=== PATIENT | male | born 1980 | race Caucasian/White ===

== ENCOUNTER 2018-06-24 18:46 | Emergency (ER) | payer MEDICAID, SELFPAY ==
[2018-06-24 18:49] VITALS: BP 124/86; PULSE 78; RESP 18; TEMP 37; O2SAT 98
[2018-06-24] MEDS: Tetracaine 0.5% 4 ML BTL 1 ML OP (19:01)
--- NOTE | 2018-06-24 19:31 | ED.GENADUL_ITS ---
Disposition Clinical Impression: Foreign body of right eye Disposition: HOME Instructions: Eye Foreign Body (ED) Additional Instructions: Please use antibiotic ointment: apply 1inch to right eye 4 times a day for the next 1 week. Please follow-up with an audio visual production specialist tomorrow. Please follow-up with your primary care physician. Return to the emergency department immediately for any worsening or new concerning symptoms. Referrals: Vi Gamble [Primary Care Provider] - [facility] [Outside] Medical Decision Making - Medical Decision Making 37-year-old male here with small metallic foreign body embedded in right cornea. I anesthetized with tetracaine drops. Foreign body easily removed with 30- gauge beveled needle - no complications. Small persistent corneal stain vs rust ring vs tiny fb. Will start erythromycin ointment. Patient advised to followup tomorrow with [facility]. Patient understands importance of follow-up tomorrow. I encouraged him to return to the ER should have any worsening or new concerning symptoms. Will give tetanus vaccination. History of Present Illness - General Chief complaint: EyeProblem Stated complaint: FB IN EYE Time Seen by Provider: 06/24/18 19:29 Source: patient, RN notes reviewed Mode of arrival: ambulatory Limitations: no limitations - History of Present Illness Initial comments: 37yo m with chief complaint of foreign body in right eye. 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 This occurred around 4 PM today. He was wearing eye protection. Foreign body has been irritating. Discomfort is moderate. He did flush his eye without relief. He has associated tearing. No associated visual change. - Related Data Unknown [No Known Home Meds] 06/24/18 Allergies Allergy/AdvReac Type Severity Reaction Status Date / Time No Known Allergies Allergy Unverified 06/24/18 18:56 Review of Systems Eyes: eye pain. denies: vision change Past Medical History - Past Medical History Medical history: no medical history Surgical history: other (disk surgery) - Social History Smoking status: current everyday smoker Alcohol use: occasionally Drug use: none General Exam - General Limitations: no limitations General appearance: alert, in no apparent distress - Eye Eye exam: Present: PERRL, EOMI, other (right eye with conjunctival injection, tiny metalic fb embedded in cornea at 11pm ). Absent: conjunctival injection - Neurological Exam Neurological exam: Present: alert. Absent: altered - Skin Skin exam: Present: warm, dry, intact Course Vital Signs - 24 hr 06/24/18 18:49 Temperature 37 C Pulse 78 Respiratory 18 Rate Blood Pressure 124/86 Pulse Oximetry 98
[2018-06-24] MEDS: Erythromycin Ophth Oint 3.5 GM TUBE 1 GM OD (19:37)
== END 2018-06-24 19:53 | disposition home or self-care (01) ==
PROVIDERS: Emergency Provider Student in an Organized Health Care Education/Training Program; PCP Nurse Practitioner Family
DX: T15.91XA Foreign body on external eye, part unspecified, right eye, initial encounter (principal)
CPT/HCPCS: 65220; 90471

== ENCOUNTER 2018-10-05 15:46 | Emergency (ER) | payer MEDICAID, SELFPAY ==
[2018-10-05 15:55] VITALS: RESP 18
[2018-10-05 15:58] VITALS: BP 121/79; PULSE 85; RESP 16; TEMP 36.6; O2SAT 99
--- NOTE | 2018-10-05 16:02 | W.ED.GENAD ---
Discharge Plan Disposition Patient Disposition: HOME Condition: Good Discharge Details Chief Complaint: SOB Clinical Impression: Wheezing, Bronchitis Primary Care Provider: Vi Gamble ED Provider: Sameer Singh Home Meds and New Rx's Prescriptions: New prednisone 20 mg tablet 60 mg PO DAILY 4 Days Qty: 12 RF: 0 doxycycline hyclate 100 mg tablet 100 mg PO BID Qty: 14 RF: 0 No Action No Known Home Meds RF: 0 Discharge Instructions Additional Instructions: You need to follow up with your primary care provider within a week. You should have testing done to evaluate for copd If you have worsening shortness of breath despite using your inhaler, or severe pain return to the emergency department for reevaluation Medical Decision Making 37 yo male with no chronic medical problems, smoker for about 20 years 1ppd on average per pt, comes in with worsening shrotness of breath and productive cough for a month. Denies chest pain, leg swelling or calf pain. HE is speaking in full sentences but has wheezing diffusely on exam. No leg swelling or calf tenderness and has no tachycardia or hypoxia so doubt PE. I suspect he has undiagnosed copd given his smoking history, will treat with abx given increased productive cough, nebulizer and steroids and monitor pt feels much better after stesroids and breathing treatment, has mild wheezing at the bases bilaterally. Will treat as copd exacerbation and referred to pcp within a week and should have testing done for copd. Return precautions given Differential Diagnosis copd, uri, pneumonia, asthma HPI General Mode of arrival: ambulatory. Date/Time Provider Initiated Documentation: 10/05/18 15:49. Limitations to Documentation: no limitations. Information obtained by: patient. History of Present Illness 37 year old M presents to the emergency department with the chief complaint of cough and shortness of breath, described as moderate, Patient reports no radiation. Patient started experiencing this month(s) (1) and it has been constant. No relieving factors improve symptom(s), No exacerbating factors reported . Patient did receive the following treatments prior to arrival, none Related Data Home Medications Medication Instructions Recorded Confirmed Unknown [No Known Home Meds] 06/24/18 10/05/18 doxycycline hyclate 100 mg PO BID #14 tab 10/05/18 prednisone 60 mg PO DAILY 4 Days #12 tab 10/05/18 Previous Rx's Medication Instructions Recorded doxycycline hyclate 100 mg PO BID #14 tab 10/05/18 prednisone 60 mg PO DAILY 4 Days #12 tab 10/05/18 Allergies Allergy/AdvReac Type Severity Reaction Status Date / Time No Known Allergies Allergy Unverified 10/05/18 16:03 General Stated Complaint: SOB ZEE: 3 Review of Systems Review of Systems All systems reviewed & are unremarkable except as noted in HPI and below Constitutional Denies fever(s) and Denies weakness Eyes Denies loss of vision ENT Denies change in voice Cardiovascular Denies chest pain Gastrointestinal Denies abdominal pain, Denies nausea and Denies vomiting Genitourinary Denies dysuria Musculoskeletal Denies joint swelling Integumentary/Breasts Denies rash Neurologic Denies loss of vision and Denies weakness Psychiatric Denies depression Endocrine Denies cold intolerance and Denies heat intolerance [facility] Social History Smoking/Tobacco Use Status: Current every day Exam Const General: no acute distress Orientation: alert HENMT Head: normal to inspection Ears: external ears normal General nose exam: external nose normal Mouth: moist mucous membranes Eyes General: appearance normal, both eyes and all related structures Neck Neck: normal visual inspection Resp Effort & Inspection: normal respiratory effort, able to speak in complete sentences and audible wheezes Cardio Rate: regular rate Skin General skin exam: no rashes or lesions noted Neuro General: alert and oriented x3 Extrem General: normal to inspection Psych Mental Status: mental status grossly normal Course Vital Signs Temperature 36.6 C 10/05/18 15:58 Pulse 85 10/05/18 15:58 Respiratory Rate 16 10/05/18 15:58 Blood Pressure 121/79 10/05/18 15:58 Pulse Oximetry 99 10/05/18 15:58 Temperature 36.6 C 10/05/18 15:58 Temperature Source Temporal Artery Scan 10/05/18 15:58 Pulse 85 10/05/18 15:58 Respiratory Rate 16 10/05/18 15:58 Blood Pressure 121/79 10/05/18 15:58 Blood Pressure Position Sitting 10/05/18 15:58 Pulse Oximetry 99 10/05/18 15:58 Oxygen Delivery Method Room Air 10/05/18 15:58 Oxygen Flow Rate 0 10/05/18 15:58 Pain Level 0 10/05/18 15:58
[2018-10-05] MEDS: predniSONE 20 MG TAB 60 MG PO ×2 (16:12→16:13)
[2018-10-05] MEDS: Albuterol/Ipratropium 3 ML UPD VIAL UPD (16:13)
[2018-10-05] MEDS: Doxycycline Hyclate 100 MG CAP PO (16:13)
[2018-10-05] MEDS: Inhaler, Assist Device 1 EACH MC (16:54)
[2018-10-05] MEDS: Albuterol HFA 8 GM 60 PUFF INH IH (17:01)
== END 2018-10-05 16:54 | disposition home or self-care (01) ==
PROVIDERS: Emergency Provider Emergency Medicine; PCP Nurse Practitioner Family
DX: J20.9 Acute bronchitis, unspecified (principal); F17.210 Nicotine dependence, cigarettes, uncomplicated
CPT/HCPCS: 94640; 99283; J7512; J7620

== ENCOUNTER 2019-02-14 17:47 | Emergency (ER) | payer MEDICAID, SELFPAY ==
--- NOTE | 2019-02-14 18:02 | NUR.NOTE ---
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
[2019-02-14 18:03] VITALS: BP 127/85; PULSE 95; RESP 16; TEMP 37; O2SAT 96
--- NOTE | 2019-02-14 18:16 | W.ED.GENAD ---
Discharge Plan Disposition Patient Disposition: HOME Condition: Good Discharge Details Chief Complaint: EyeProblem Clinical Impression: Eye foreign body Primary Care Provider: Vi Gamble ED Provider: Reymundo Morris Home Meds and New Rx's Prescriptions: No Action No Known Home Meds RF: 0 doxycycline hyclate 100 mg tablet 100 mg PO BID Qty: 14 RF: 0 Discharge Instructions Instructions: Eye Foreign Body (ED) Additional Instructions: Please follow-up as soon as possible with your nursing home director. Please use the ointment as directed. If you notice any worsening of your symptoms, or any new symptoms such as vomiting, diarrhea, fever, chills, shortness of breath, chest pain, numbness, weakness, or fainting , vision changes, or other abnormality please return immediately to the emergency department for reevaluation. Please follow up with your primary care provider as soon as possible for reassessment and reevaluation. As always, it was a pleasure participating in your medical care today. Referrals: [facility] [OTHER] - Medical Decision Making This is is a 38-year-old male who presents for evaluation of foreign body in the right eye. It occurred roughly 1-2 hours ago when he was working on a car wearing safety glasses. He does not wear contacts. Physical exam demonstrates a very small rust spec in the right lateral aspect of the eye just to the border of the cornea at the 9 o'clock position. Fluorescein stain demonstrates no other significant abrasions, no evidence of leak, negative Betty sign. No other abnormalities. Pain is well controlled. Vision is intact bilaterally. Using a TB needle the metallic object was removed without any complication or difficulty. Patient tolerated well. Tetanus is up-to-date. He will be given a prescription for erythromycin ointment, recommendation for close follow-up with his nursing home director Dr. Garza. We discussed red flags which to return the patient understands. I have extensively reviewed the treatment plan and discharge instructions with the patient. I have addressed all patient concerns at this time. The patient was made aware of what symptoms to monitor for that would warrant a return to the emergency department. Discussed the plan with the patient, they demonstrate verbal understanding and agreement with our assessment and plan at this time. HPI General Date/Time Provider Initiated Documentation: 02/14/19 18:15. HPI Narrative: This is a 38-year-old male with no significant past medical history who presents today for evaluation of a foreign body in his right eye. He is wearing his safety goggles something fell and landed behind his glasses into his right eye while working on a car. His tetanus is up-to-date. This is about an hour or so ago. He denies any significant eye pain, or other vision changes. He denies any blurry vision he denies any headache. Tetanus is updated within the last 5 years. No other complaints at this time. No other modifying factors Related Data Home Medications Medication Instructions Recorded Confirmed Unknown [No Known Home Meds] 06/24/18 10/05/18 doxycycline hyclate 100 mg PO BID #14 tab 10/05/18 Previous Rx's Medication Instructions Recorded doxycycline hyclate 100 mg PO BID #14 tab 10/05/18 Allergies Allergy/AdvReac Type Severity Reaction Status Date / Time No Known Allergies Allergy Unverified 10/05/18 16:03 General Stated Complaint: EyeProblem ZEE: 4 Review of Systems Review of Systems All systems reviewed & are unremarkable except as noted in HPI and below PFSH Social History Smoking/Tobacco Use Status: Current every day Drug use: Never Do you feel safe in your relationship?: Yes Exam Narrative Exam Narrative: 1.Const: Well-nourished, Well-developed, appearing stated age 2.Eyes: PERRL, no conjunctival injection, and symmetrical lids. Right eye: Eye: EOMI, PERRL, Peripheral vision intact. No nystagmus. No external signs of preseptal cellulitis, no redness around the eye, no proptosis. No hyphema, no signs of trauma around the eye, no periorbital emphysema. Fluorescein exam is negative for corneal abrasion, negative Betty sign. Visual acuity as documented in chart. He does demonstrate a small metallic danna component just to the right of his cornea the lateral aspect. No evidence of rust ring. No evidence of metallic foreign body or other foreign body noted beneath the upper or lower lid. 3.ENT: Atraumatic external nose and ears. Moist MM. Neck: Symmetric, trachea midline, No thyromegaly. 4.CVS: +S1/S2, No murmurs or gallops. Peripheral pulses 2+ and equal in all extremities. Brisk capillary refill in all extremities. 5.RESP: Unlabored respiratory effort. Clear to auscultation bilaterally. No wheezes rales or rhonchi 6.GI: Soft, Nontender/Nondistended, No hepatosplenomegaly. No guarding or rebound. 7.MSK: Normocephalic/Atraumatic, Extremities w/o deformity or ttp No cyanosis or clubbing, Normal movement of all extremities 8.Skin: Warm, Dry. No rashes or lesions. 9.Neuro: hospital superintendent II-XII grossly intact. Sensation grossly intact, no focal neurologic deficits. 10.Psych: (AAO) x3. Appropriate mood and affect Course Vital Signs Temperature 37 C 02/14/19 18:03 Pulse 95 H 02/14/19 18:03 Respiratory Rate 16 02/14/19 18:03 Blood Pressure 127/85 02/14/19 18:03 Pulse Oximetry 96 02/14/19 18:03 Temperature 37 C 02/14/19 18:03 Temperature Source Skin 02/14/19 18:03 Pulse 95 H 02/14/19 18:03 Respiratory Rate 16 02/14/19 18:03 Blood Pressure 127/85 02/14/19 18:03 Blood Pressure Position Sitting 02/14/19 18:03 Pulse Oximetry 96 02/14/19 18:03 Oxygen Delivery Method Room Air 02/14/19 18:03 Oxygen Flow Rate 0 02/14/19 18:03 Pain Level 0 02/14/19 18:03
--- NOTE | 2019-02-14 18:21 | ED.GENADUL_ITS ---
Discharge Plan Disposition Patient Disposition: HOME Condition: Good Discharge Details Chief Complaint: EyeProblem Clinical Impression: Eye foreign body Primary Care Provider: Vi Gamble ED Provider: Reymundo Morris Home Meds and New Rx's Prescriptions: No Action No Known Home Meds RF: 0 doxycycline hyclate 100 mg tablet 100 mg PO BID Qty: 14 RF: 0 Discharge Instructions Instructions: Eye Foreign Body (ED) Additional Instructions: Please follow-up as soon as possible with your palliative senior np. Please use the ointment as directed. If you notice any worsening of your symptoms, or any new symptoms such as vomiting, diarrhea, fever, chills, shortness of breath, chest pain, numbness, weakness, or fainting , vision changes, or other abnormality please return immediately to the emergency department for reevaluation. Please follow up with your primary care provider as soon as possible for reassessment and reevaluation. As always, it was a pleasure participating in your medical care today. Referrals: [facility] [OTHER] - Medical Decision Making This is is a 38-year-old male who presents for evaluation of foreign body in the right eye. It occurred roughly 1-2 hours ago when he was working on a car wearing safety glasses. He does not wear contacts. Physical exam demonstrates a very small rust spec in the right lateral aspect of the eye just to the border of the cornea at the 9 o'clock position. Fluorescein stain demonstrates no other significant abrasions, no evidence of leak, negative Betty sign. No other abnormalities. Pain is well controlled. Vision is intact bilaterally. Using a TB needle the metallic object was removed without any complication or difficulty. Patient tolerated well. Tetanus is up-to-date. He will be given a prescription for erythromycin ointment, recommendation for close follow-up with his palliative senior np Dr. Garza. We discussed red flags which to return the patient understands. I have extensively reviewed the treatment plan and discharge instructions with the patient. I have addressed all patient concerns at this time. The patient was made aware of what symptoms to monitor for that would warrant a return to the emergency department. Discussed the plan with the patient, they demonstrate verbal understanding and agreement with our assessment and plan at this time. HPI General Date/Time Provider Initiated Documentation: 02/14/19 18:15 . HPI Narrative: This is a 38-year-old male with no significant past medical history who presents today for evaluation of a foreign body in his right eye. He is wearing his safety goggles something fell and landed behind his glasses into his right eye while working on a car. His tetanus is up-to-date. This is about an hour or so ago. He denies any significant eye pain, or other vision changes. He denies any blurry vision he denies any headache. Tetanus is updated within the last 5 years. No other complaints at this time. No other modifying factors Related Data Home Medications Medication Instructions Recorded Confirmed Unknown [No Known Home Meds] 06/24/18 10/05/18 doxycycline hyclate 100 mg PO BID #14 tab 10/05/18 Previous Rx's Medication Instructions Recorded doxycycline hyclate 100 mg PO BID #14 tab 10/05/18 Allergies Allergy/AdvReac Type Severity Reaction Status Date / Time No Known Allergies Allergy Unverified 10/05/18 16:03 General Stated Complaint: EyeProblem ZEE: 4 Review of Systems Review of Systems All systems reviewed & are unremarkable except as noted in HPI and below PFSH Social History Smoking/Tobacco Use Status: Current every day Drug use: Never Do you feel safe in your relationship?: Yes Exam Narrative Exam Narrative: 1.Const: Well-nourished, Well-developed, appearing stated age 2.Eyes: PERRL, no conjunctival injection, and symmetrical lids. Right eye: Eye: EOMI, PERRL, Peripheral vision intact. No nystagmus. No external signs of preseptal cellulitis, no redness around the eye, no proptosis. No hyphema, no signs of trauma around the eye, no periorbital emphysema. Fluorescein exam is negative for corneal abrasion, negative Betty sign. Visual acuity as documented in chart. He does demonstrate a small metallic danna component just to the right of his cornea the lateral aspect. No evidence of rust ring. No evidence of metallic foreign body or other foreign body noted beneath the upper or lower lid. 3.ENT: Atraumatic external nose and ears. Moist MM. Neck: Symmetric, trachea midline, No thyromegaly. 4.CVS: +S1/S2, No murmurs or gallops. Peripheral pulses 2+ and equal in all extremities. Brisk capillary refill in all extremities. 5.RESP: Unlabored respiratory effort. Clear to auscultation bilaterally. No wheezes rales or rhonchi 6.GI: Soft, Nontender/Nondistended, No hepatosplenomegaly. No guarding or rebound. 7.MSK: Normocephalic/Atraumatic, Extremities w/o deformity or ttp No cyanosis or clubbing, Normal movement of all extremities 8.Skin: Warm, Dry. No rashes or lesions. 9.Neuro: clam sorter II-XII grossly intact. Sensation grossly intact, no focal neurologic deficits. 10.Psych: (AAO) x3. Appropriate mood and affect Course Vital Signs Temperature 37 C 02/14/19 18:03 Pulse 95 H 02/14/19 18:03 Respiratory Rate 16 02/14/19 18:03 Blood Pressure 127/85 02/14/19 18:03 Pulse Oximetry 96 02/14/19 18:03 Temperature 37 C 02/14/19 18:03 Temperature Source Skin 02/14/19 18:03 Pulse 95 H 02/14/19 18:03 Respiratory Rate 16 02/14/19 18:03 Blood Pressure 127/85 02/14/19 18:03 Blood Pressure Position Sitting 02/14/19 18:03 Pulse Oximetry 96 02/14/19 18:03 Oxygen Delivery Method Room Air 02/14/19 18:03 Oxygen Flow Rate 0 02/14/19 18:03 Pain Level 0 02/14/19 18:03
[2019-02-14] MEDS: Erythromycin Ophth Oint 3.5 GM TUBE (18:25)
[2019-02-14] MEDS: Fluorescein STRIPS 100/BOX 1 MG (18:26)
[2019-02-14 18:28] VITALS: BP 127/85; PULSE 95; RESP 16; TEMP 37; O2SAT 96
== END 2019-02-14 18:30 | disposition home or self-care (01) ==
PROVIDERS: Emergency Provider Student in an Organized Health Care Education/Training Program; PCP Nurse Practitioner Family
DX: T15.81XA Foreign body in other and multiple parts of external eye, right eye, initial encounter (principal)
CPT/HCPCS: 99283

== ENCOUNTER 2019-02-22 21:08 | Emergency (ER) | payer MEDICAID, SELFPAY ==
--- NOTE | 2019-02-22 21:24 | NUR.NOTE ---
at approximately 1600 pt walked into a metal roof and cut his forehead. cut has not closed approximately 2 cm
[2019-02-22 21:25] VITALS: BP 117/68; PULSE 77; RESP 16; TEMP 36.7; O2SAT 96
--- NOTE | 2019-02-22 21:33 | W.ED.GENAD ---
Discharge Plan Disposition Patient Disposition: HOME Condition: Good Discharge Details Chief Complaint: Laceration Clinical Impression: Laceration of scalp Primary Care Provider: Vi Gamble ED Provider: Reymundo Morris Home Meds and New Rx's Prescriptions: No Action No Known Home Meds RF: 0 Discharge Instructions Instructions: Care For Your Absorbable Stitches (ED) Additional Instructions: Your sutures should come out in the next 7-10 days on their own. If you notice any redness, discharge, drainage, fever, chills please return immediately for reevaluation. If you notice any worsening of your symptoms, or any new symptoms such as vomiting, diarrhea, fever, chills, shortness of breath, chest pain, numbness, weakness, or fainting , please return immediately to the emergency department for reevaluation. Please follow up with your primary care provider as soon as possible for reassessment and reevaluation. As always, it was a pleasure participating in your medical care today. Referrals: Vi Gamble [Primary Care Provider] - Medical Decision Making This is a pleasant 38-year-old male who presents for laceration over his left superior scalp. He struck it on a piece of clean metal few hours ago. He had no loss of consciousness, no trauma otherwise. No other significant pain. His was worried that he would get blood on the bed sheets and so he came in for further evaluation. There is a small 1.5 cm laceration to his scalp, no evidence of periosteal or galeal involvement. The area was anesthetized with 1% lidocaine, and it was cleaned and irrigated with copious amounts of chlorhexidine scrub and saline. 2 simple interrupted 5-0 chromic gut sutures were placed, excellent wound edge reapproximation, hemostasis was achieved. No other complaints. The patient will be discharged home with close follow-up. We discussed red flags to return the patient understands. I have extensively reviewed the treatment plan and discharge instructions with the patient. I have addressed all patient concerns at this time. The patient was made aware of what symptoms to monitor for that would warrant a return to the emergency department. Discussed the plan with the patient, they demonstrate verbal understanding and agreement with our assessment and plan at this time. HPI General Date/Time Provider Initiated Documentation: 02/22/19 21:33. HPI Narrative: This is a 38-year-old male with no significant past medical history whose tetanus is up-to-date who presents today for evaluation of scalp laceration. The patient states that a few hours ago he hit his head on a piece of sheet metal, causing a small cut. He did wash it out with soap and water at that time. He denies any numbness tingling headache loss of consciousness or any other complaints. He is not on any blood thinners. No other complaints or modifying factors at this time. Related Data Home Medications Medication Instructions Recorded Confirmed Unknown [No Known Home Meds] 06/24/18 10/05/18 Allergies Allergy/AdvReac Type Severity Reaction Status Date / Time No Known Allergies Allergy Unverified 10/05/18 16:03 General Stated Complaint: Laceration ZEE: 4 Review of Systems Review of Systems All systems reviewed & are unremarkable except as noted in HPI and below PFSH Social History Smoking/Tobacco Use Status: Current every day Alcohol Intake: never Drug use: Never Substance use type: does not use Do you feel safe in your relationship?: Yes Exam Narrative Exam Narrative: 1.Const: Well-nourished, Well-developed, appearing stated age 2.Eyes: PERRL, no conjunctival injection, and symmetrical lids. 3.ENT: Atraumatic external nose and ears. Moist MM. Neck: Symmetric, trachea midline, No thyromegaly. Patient demonstrates intact dentition with no signs of tooth avulsion or fracture, no signs of jaw deformity, no evidence of a LeFort's fracture, with an intact palate, nose and orbital region. There is no evidence of a nasal septal hematoma. No proptosis. Jaw closes symmetrically. Airway is clear. There is no evidence of raccoon eyes, price sign, CSF rhinorrhea, mastoid tenderness, cranial crepitus, hemotympanum, exophthalmos, or hyphema. 4.CVS: +S1/S2, No murmurs or gallops. Peripheral pulses 2+ and equal in all extremities. Brisk capillary refill in all extremities. 5.RESP: Unlabored respiratory effort. Clear to auscultation bilaterally. No wheezes rales or rhonchi 6.GI: Soft, Nontender/Nondistended, No hepatosplenomegaly. No guarding or rebound. 7.MSK: Normocephalic/Atraumatic, Extremities w/o deformity or ttp No cyanosis or clubbing, Normal movement of all extremities 8.Skin: Small laceration that is roughly 1.5 cm on his left superior scalp. No evidence of calvarial involvement. No evidence of galea involvement. No active bleeding. 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 Sensation grossly intact, no focal neurologic deficits. 10.Psych: (AAO) x3. Appropriate mood and affect Course Vital Signs Temperature 36.7 C 02/22/19 21:25 Pulse 77 02/22/19 21:25 Respiratory Rate 16 02/22/19 21:25 Blood Pressure 117/68 02/22/19 21:25 Pulse Oximetry 96 02/22/19 21:25 Temperature 36.7 C 02/22/19 21:25 Temperature Source Skin 02/22/19 21:25 Pulse 77 02/22/19 21:25 Respiratory Rate 16 02/22/19 21:25 Respiratory Effort 02/22/19 21:29 Blood Pressure 117/68 02/22/19 21:25 Blood Pressure Position Sitting 02/22/19 21:25 Pulse Oximetry 96 02/22/19 21:25 Oxygen Delivery Method Room Air 02/22/19 21:25 Oxygen Flow Rate 0 02/22/19 21:25 Pain Level 4 02/22/19 21:25
[2019-02-22 21:44] VITALS: BP 117/68; PULSE 77; RESP 16; TEMP 36.7; O2SAT 96
== END 2019-02-22 21:45 | disposition home or self-care (01) ==
PROVIDERS: Emergency Provider Student in an Organized Health Care Education/Training Program; PCP Nurse Practitioner Family
DX: S01.01XA Laceration without foreign body of scalp, initial encounter (principal); W22.8XXA Striking against or struck by other objects, initial encounter
CPT/HCPCS: 12001

== ENCOUNTER 2020-07-22 14:51 | Emergency (ER) | payer MEDICAID, SELFPAY ==
--- NOTE | 2020-07-22 14:45 | DI.RAD_ITS ---
EXAM: XR FOOT LT COMPLETE CLINICAL HISTORY: crush injury. TECHNIQUE: 2D digital imaging was performed. COMPARISON: No exams were available for comparison FINDINGS: BONES: No acute fracture is present. No bony destructive lesion is seen. JOINTS: No dislocation present. SOFT TISSUE: Soft tissue swelling of the forefoot. IMPRESSION: No acute fracture or dislocation. DATA REPOSITORY: RADIATION DOSE DELIVERED:
[2020-07-22 14:53] VITALS: BP 133/84; PULSE 74; RESP 20; TEMP 36.5; O2SAT 98
--- NOTE | 2020-07-22 15:25 | W.ED.GENAD ---
Discharge Plan Disposition Patient Disposition: HOME Condition: Stable Discharge Details Chief Complaint: Orthopedic Clinical Impression: Contusion of foot Primary Care Provider: Vi Gamble ED Provider: Kieran Jefferson Home Meds and New Rx's Prescriptions: Continued amoxicillin 500 mg capsule 500 mg PO TID RF: 0 Discharge Instructions Instructions: Foot Contusion (ED) Additional Instructions: X-ray is negative. You have declined any splinting. You have crutches at home. Rest, elevate, cool compresses every 2 hours for 20 minutes. Use crutches as needed, advance activity as tolerated. [id number] Tylenol and/or Motrin as directed for discomfort. Please watch for new or worsening symptoms and return to the ER for any concerns. Medical Decision Making Patient presents for a left foot crush injury. He appears well, nontoxic. Skin is intact. Will obtain x-ray to rule any bony involvement X-ray of left foot read by me then confirmed by radiology as no acute fracture. Discussed x-ray findings with patient. He does not want any splinting. He already has crutches at home. He is simply relieved that he has no fracture. No additional questions or concerns and is comfortable discharge. Medical Records Medical records reviewed: Yes I reviewed the patient's medical records. HPI General Mode of arrival: ambulatory. Date/Time Provider Initiated Documentation: 07/22/20 14:58. Limitations to Documentation: no limitations. Information obtained by: patient. HPI Narrative: This is a 39-year-old gentleman who reports that just prior to arrival while at work he dropped a overhead door on his left foot. He reports moderate pain worse with movement or weightbearing. Denies numbness, tingling, weakness. Denies any other injury. He reports that the door was very heavy, likely over 500 pounds. He was wearing shoes but they were not steel toed. Related Data Home Medications Medication Instructions Recorded Confirmed amoxicillin 500 mg PO TID 07/22/20 07/22/20 Allergies Allergy/AdvReac Type Severity Reaction Status Date / Time No Known Allergies Allergy Unverified 10/05/18 16:03 General Stated Complaint: Orthopedic ZEE: 4 Review of Systems Gastrointestinal Gastrointestinal: Denies nausea and Denies vomiting Musculoskeletal Musculoskeletal: Denies numbness and Denies tingling Integumentary/Breasts Skin/Breast: Denies rash Neurologic Neurologic: Denies numbness and Denies tingling [facility] Social History Smoking/Tobacco Use Status: Current every day Alcohol Intake: never Drug use: Never Substance use type: does not use Do you feel safe at home: Yes Do you feel safe in your relationship?: Yes Exam Const General: cooperative, healthy appearing, comfortable and no acute distress Orientation: alert and awake HENMT Head: normal to inspection, normocephalic and atraumatic Mouth: moist mucous membranes Eyes Conjunctivae: conjunctivae normal Neck Neck: normal visual inspection, trachea midline and supple Resp Effort & Inspection: normal respiratory effort and able to speak in complete sentences Cardio Rate: regular rate Rhythm: regular rhythm Skin General skin exam: no rashes or lesions noted Neuro General: patient alert, patient awake, moves all extremities and no focal motor deficits Sensory Exam: no sensory deficits noted Extrem Ankle/foot/toe images: 1. Contusion, ecchymosis, swelling, tenderness to palpation. Skin is intact. No deformity. Neuro, vascular, tendon intact. Normal capillary refill. Full range of motion Psych Appearance: grossly normal Mental Status: mental status grossly normal Course Vital Signs Vital signs: Vital Signs Temperature 36.5 C 07/22/20 14:53 Pulse 74 07/22/20 14:53 Respiratory Rate 07/22/20 14:53 Blood Pressure 133/84 07/22/20 14:53 Pulse Oximetry 98 07/22/20 14:53 Temperature 36.5 C 07/22/20 14:53 Temperature Source Skin 07/22/20 14:53 Pulse 74 07/22/20 14:53 Respiratory Rate 07/22/20 14:53 Respiratory Effort Non-Labored 07/22/20 14:57 Blood Pressure 133/84 07/22/20 14:53 Blood Pressure Position Sitting 07/22/20 14:53 Pulse Oximetry 98 07/22/20 14:53 Oxygen Delivery Method Room Air 07/22/20 14:53 Oxygen Flow Rate 0 07/22/20 14:53 Pain Level 5 07/22/20 14:53
== END 2020-07-22 15:45 | disposition home or self-care (01) ==
PROVIDERS: Emergency Provider Physician Assistant; PCP Nurse Practitioner Family
DX: S97.82XA Crushing injury of left foot, initial encounter (principal); S90.32XA Contusion of left foot, initial encounter; W20.8XXA Other cause of strike by thrown, projected or falling object, initial encounter; Y99.0 Civilian activity done for income or pay
CPT/HCPCS: 99283; 73630

== ENCOUNTER 2021-05-08 14:59 | Emergency (ER) | payer MEDICAID, SELFPAY ==
[2021-05-08 15:11] VITALS: BP 137/106; PULSE 80; RESP 14; TEMP 37.1; O2SAT 96
--- NOTE | 2021-05-08 15:22 | ED.GENADUL_ITS ---
Discharge Plan Disposition Patient Disposition: HOME Condition: Good Discharge Details Clinical Impression: Dog bite of right forearm Primary Care Provider: Vi Gamble ED Provider: eRymundo Morris Home Meds and New Rx's Prescriptions: New amoxicillin-pot clavulanate [Augmentin] 875-125 mg tablet 1 tab PO BID Qty: 20 RF: 0 Discharge Instructions Instructions: Animal Bite (ED) Additional Instructions: At this time a single suture was placed for reapproximation of the skin. I would expect a small amount of redness and discharge over the next 1 to 2 days. If you notice extending redness up or down your forearm or fever or chills return immediately for reassessment as this would signify a worsening infection. The prescription for the antibiotic was sent to your pharmacy. Please start this as soon as possible. You have been given a dose of medication now, and 1 pill to go home with which can be taken in 12 hours. This is to hold you over until you have your prescription filled. Please clean the area gently with warm soap and water. Change your bandaging daily. Please return in 7 to 10 days for wound recheck and to have the suture removed. It is free if you come back here to have it rechecked and removed. As we discussed together it is vitally important that you determine the vaccine status of the dog in regards to rabies. The dog needs to be monitored for any odd behavior or signs of rabies. You do have 3 to 5 days to make the decision if you want the rabies vaccines that we did offer today, although this is not ideal. If at any point you change your mind and want these vaccines please return immediately and we can administer them. If you notice any worsening of your symptoms, or any new symptoms such as vomiting, diarrhea, fever, chills, shortness of breath, chest pain, numbness, weakness, or fainting , please return immediately to the emergency department for reevaluation. Please follow up with your primary care provider as soon as possible for reassessment and reevaluation. As always, it was a pleasure participating in your medical care today. Referrals: Vi Gamble [Primary Care Provider] - Medical Decision Making This is a very pleasant 40-year-old male who presents today for dog bite to his right dominant arm. 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 He washed it out at the post office, and then came to the ER for further assessment. He denies numbness tingling or weakness. He does have mild tenderness where the dog bit the anterior/ventral aspect of the forearm. He is not on blood thinners. No fever or chills. No other complaints at this time. No pain with movement of the arm. No pain with flexion or extension of the wrist. Or flexion or extension of the elbow. Exam demonstrates a 4 cm L-shaped laceration which appears notably superficial with no deep involvement. Small flap of skin at the central point. Small hematoma distal. No neurovascular deficits on exam. No pain or tenderness with movement of the wrist elbow or forearm. Mild tenderness on palpation of the hematoma. No evidence of foreign body. The wound was extensively irrigated with copious amounts of normal saline and chlorhexidine. The patient declined anesthetics. The area was loosely reapproximated with a single simple interrupted suture at the central point of the laceration with good wound edge reapproximation. No indications for additional sutures at this time as there is good wound edge reapproximation, and additionally increase suturing would notably increase her risk of potential infection. Patient was given a dose of Augmentin here, and we will be given a prescription for home. This was sent to his pharmacy on file. Discussed concerning red flags which to return, including the importance of follow-up in the next 7 to 10 days for wound reassessment and suture removal. No indication for imaging at this time. Patient declines rabies immunization at this time, they are actively trying to determine the rabies status of the dog, however the patient states clearly that he will return if they find that the vaccine status is not up-to-date for the dog or that he is at risk for rabies. His tetanus is up-to-date at this time. I have extensively reviewed the treatment plan and discharge instructions with the patient and their family. I have addressed all patient concerns at this time. The patient and family was made aware of what symptoms to monitor for that would warrant a return to the emergency department. Discussed the plan with the patient and family, they demonstrate verbal understanding and agreement with our assessment and plan at this time. The documentation in this chart was dictated using [employer] dictation software. Please excuse any dictation errors. HPI General Date/Time Provider Initiated Documentation: 05/08/21 15:14 . HPI Narrative: This is a very pleasant 40-year-old male who presents today for dog bite to his right dominant arm. 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 He washed it out at the post office, and then came to the ER for further assessment. He denies numbness tingling or weakness. He does have mild tenderness where the dog bit the anterior/ventral aspect of the forearm. He is not on blood thinners. No fever or chills. No other complaints at this time. No pain with movement of the arm. No pain with flexion or extension of the wrist. Or flexion or extension of the elbow. Related Data Home Medications Medication Instructions Recorded Confirmed amoxicillin-pot clavulanate 1 tab PO BID #20 tab 05/08/21 [Augmentin] Previous Rx's Medication Instructions Recorded amoxicillin-pot clavulanate 1 tab PO BID #20 tab 05/08/21 [Augmentin] Allergies Allergy/AdvReac Type Severity Reaction Status Date / Time No Known Allergies Allergy Unverified 05/08/21 15:18 General Stated Complaint: AnimalBite ZEE: 3 Review of Systems All systems reviewed & are unremarkable except as noted in HPI and below [facility] Social History Smoking/Tobacco Use Status: Current every day Smoking risk assessment performed?: Yes Alcohol Intake: never Drug use: Never Substance use type: does not use Do you feel safe at home: Yes Do you feel safe in your relationship?: Yes Exam Narrative Exam Narrative: 1.Const: Well-nourished, Well-developed, appearing stated age 2.Eyes: PERRL, no conjunctival injection, and symmetrical lids. 3.ENT: Atraumatic external nose and ears. Moist MM. Neck: Symmetric, trachea midline, No thyromegaly. 4.CVS: +S1/S2, No murmurs or gallops. Peripheral pulses 2+ and equal in all extremities. Brisk capillary refill in all extremities. 5.RESP: Unlabored respiratory effort. Clear to auscultation bilaterally. No wheezes rales or rhonchi 6.GI: Soft, Nontender/Nondistended, No hepatosplenomegaly. No guarding or rebound. 7.MSK: Normocephalic/Atraumatic, Extremities w/o deformity or ttp No cyanosis or clubbing, Normal movement of all extremities 8.Skin: Warm, Dry. Small L shaped lesion over the anterior right forearm, each wing of the L is roughly 2 cm. Laceration appears superficial and not deep. No evidence of involvement of the deep tendons or tissues. Small hematoma just distal to that area. No tenderness over the radius or ulna. No tenderness with flexion or extension of the wrist flexors, or the elbow flexors. Distal exam d emonstrates good capillary refill, good neurovascular exam, normal two-point discrimination for all fingers and hand, normal radial and ulnar pulse. No deficits. No weakness. 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 Sensation grossly intact, no focal neurologic deficits. 10.Psych: (AAO) x3. Appropriate mood and affect Course Vital Signs Vital signs: Vital Signs Temperature 37.1 C 05/08/21 15:11 Pulse 80 05/08/21 15:11 Respiratory Rate 14 05/08/21 15:11 Blood Pressure 137/106 H 05/08/21 15:11 Pulse Oximetry 96 05/08/21 15:11 Temperature 37.1 C 05/08/21 15:11 Temperature Source Skin 05/08/21 15:11 Pulse 80 05/08/21 15:11 Respiratory Rate 14 05/08/21 15:11 Blood Pressure 137/106 H 05/08/21 15:11 Pulse Oximetry 96 05/08/21 15:11 Oxygen Delivery Method Room Air 05/08/21 15:11 Oxygen Flow Rate 0 05/08/21 15:11 Pain Level 5 05/08/21 15:11 Comment 05/08/21 15:11 Procedures Laceration Laceration 1: Site: upper extremity (Forearm) Side (If applicable): right Size (cm): 4 Description: linear Depth: simple, single layer Pre-repair: wound explored, irrigated extensively and deep structures intact Skin layer closed with: nylon Size (cm): 4-0 Number of sutures: 1 Technique: simple, interrupted
[2021-05-08] MEDS: Amox. 875/Clav. 125, 2 TABS/BTL 1 TAB PO (15:34)
[2021-05-08] MEDS: Bacitracin 1 PACKET (15:35)
--- NOTE | 2021-05-08 15:40 | NUR.NOTE ---
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 Spoke with driss Smith, she gave me the names and dates due of the 3 dogs that Alvaro San has. 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 Form faxed to [facility] office. Monique Beaulieu
== END 2021-05-08 15:39 | disposition home or self-care (01) ==
PROVIDERS: Emergency Provider Student in an Organized Health Care Education/Training Program; PCP Nurse Practitioner Family
DX: S51.851A Open bite of right forearm, initial encounter (principal); W54.0XXA Bitten by dog, initial encounter; Y99.0 Civilian activity done for income or pay
CPT/HCPCS: 12002

== ENCOUNTER 2021-05-16 09:40 | Emergency (ER) | payer SELFPAY ==
--- NOTE | 2021-05-16 09:42 | ED.GENADUL_ITS ---
Discharge Plan Disposition Patient Disposition: HOME Condition: Stable Discharge Details Clinical Impression: Visit for suture removal Primary Care Provider: Vi Gamble ED Provider: Kieran Jefferson Home Meds and New Rx's Prescriptions: Continued amoxicillin-pot clavulanate [Augmentin] 875-125 mg tablet 1 tab PO BID Qty: 20 RF: 0 Discharge Instructions Instructions: Stitches Removal (ED) Additional Instructions: Suture removed without difficulty. Please watch for new or worsening symptoms and return to the ER for any concerns Medical Decision Making 40-year-old male presents for suture removal. The repaired laceration appears well-healing, sutures are ready to be removed. Suture removed without difficulty. Patient tolerated well. He will continue taking his Augmentin. No additional questions or concerns Medical Records Medical records reviewed: Yes I reviewed the patient's medical records. HPI General Mode of arrival: ambulatory . Date/Time Provider Initiated Documentation: 05/16/21 09:42 . Limitations to Documentation: no limitations . Information obtained by: patient . HPI Narrative: 40-year-old gentleman presents to the ER for suture removal. Patient sustained a dog bite on 05-08, had a single suture placed in his right forearm, and is still taking his Augmentin. Patient denies any pain, fever, redness, discharge. Patient denies any numbness, tingling, weakness. He has no concerns or complaints at this time. Related Data Home Medications Medication Instructions Recorded Confirmed amoxicillin-pot clavulanate 1 tab PO BID #20 tab 05/08/21 05/16/21 [Augmentin] Previous Rx's Medication Instructions Recorded amoxicillin-pot clavulanate 1 tab PO BID #20 tab 05/08/21 [Augmentin] Allergies Allergy/AdvReac Type Severity Reaction Status Date / Time No Known Allergies Allergy Unverified 05/16/21 09:52 General ZEE: 3 Review of Systems Constitutional Constitutional: Denies fever(s) Musculoskeletal Musculoskeletal: Denies numbness, Denies stiffness and Denies tingling Integumentary/Breasts Skin/Breast: Denies erythema Neurologic Neurologic: Denies numbness and Denies tingling [facility] Social History Smoking/Tobacco Use Status: Current every day Smoking risk assessment performed?: Yes Alcohol Intake: never Drug use: Never Substance use type: does not use Do you feel safe at home: Yes Do you feel safe in your relationship?: Yes Exam Const General: cooperative, healthy appearing, comfortable and no acute distress Orientation: alert and awake [facility] Head: normal to inspection, normocephalic and atraumatic Eyes General: appearance normal, both eyes and all related structures Conjunctivae: conjunctivae normal Neck Neck: normal visual inspection, trachea midline and supple Resp Effort & Inspection: normal respiratory effort and able to speak in complete sentences Cardio Rate: regular rate Rhythm: regular rhythm Skin General skin exam: no rashes or lesions noted Neuro General: patient alert, patient awake, moves all extremities and no focal motor deficits Cognition: normal cognition Speech: speech normal Gait: normal gait Sensory Exam: no sensory deficits noted Extrem General: full ROM and capillary refill normal Other: Anterior right forearm there is a well-healing laceration with a single suture in place. There is no warmth, erythema, drainage. No signs of secondary infection. No induration or fluctuance. Elbow, forearm, wrist, hand otherwise unremarkable. Normal radial pulse and capillary refill. Psych Appearance: grossly normal Mental Status: mental status grossly normal
[2021-05-16 09:47] VITALS: BP 129/86; PULSE 69; RESP 18; TEMP 36.7; O2SAT 96
== END 2021-05-16 09:54 | disposition home or self-care (01) ==
PROVIDERS: Emergency Provider Physician Assistant; PCP Nurse Practitioner Family
DX: S51.851D Open bite of right forearm, subsequent encounter (principal); W54.0XXD Bitten by dog, subsequent encounter; Z48.02 Encounter for removal of sutures

== ENCOUNTER 2023-07-09 17:12 | Emergency (ER) | payer MEDICAID, SELFPAY ==
[2023-07-09 17:21] VITALS: BP 140/89; PULSE 71; RESP 18; O2SAT 98
== END 2023-07-09 19:30 | disposition left against medical advice (07) ==
PROVIDERS: PCP Nurse Practitioner Family
DX: Z53.21 Procedure and treatment not carried out due to patient leaving prior to being seen by health care provider (principal)

== ENCOUNTER 2023-07-11 17:10 | Emergency (ER) | payer MEDICAID, SELFPAY ==
[2023-07-11 17:13] VITALS: BP 157/96; PULSE 78; RESP 14; TEMP 37.1; O2SAT 98
--- NOTE | 2023-07-11 17:22 | NUR.NOTE ---
Nursing Note: patient reports for 1 week he feels like his lower right lip drooping, with numbness that has spread toward his right eye and decreased taste. Right lip appears to be slight drooped when patient smiles.patient AOx3, able to feel extremties, equal strength, Call light within reach at this time.
--- NOTE | 2023-07-11 17:31 | ED.GENADUL_ITS ---
Discharge Plan Disposition Patient Disposition: Home Condition: Stable Discharge Details Clinical Impression: Landa's palsy Primary Care Provider: Vi Gamble ED Provider: Sameer Singh Home Meds and New Rx's Prescriptions: New prednisone 20 mg tablet 60 mg PO DAILY 7 Days Qty: 21 0RF valacyclovir 1 gram tablet 1,000 mg PO TID Qty: 21 0RF Discharge Instructions Instructions: Landa Palsy (ED) Additional Instructions: Follow up with your primary care provider in 1-2 weeks especially if not improving I'd recommend using over the counter artificial tear drops in your eyes during the day to keep them moist, especially the right eye. I'd also recommend wearing an eye patch at night to protect the eye if you develop severe pain, weakness in the body or confusion or feel more ill return to the emergency department Medical Decision Making 42 yo male who has no chronic medical problems comes in with right sided facial numbness. HE states a week ago he noticed the right side of his tongue felt numb and things didn't taste normal. Then Saturday his right lower lip felt numb and now feels numbness moving up the right face. Denies fevers, chills, weakness in the arms or legs, confusion, he otherwise feels well. HE is noted to have a ride sided facial droop at the mouth with no sparing of the forehead, can't fully open or close the right eye. No pain in the eye or discomfort, no redness, eomi intact, caox4 and has 5/5 strength in all extremities without drift. No findings of herpes zoster on exam. His symptoms are consistent with bells palsy, no findings to suggest acute cva. Given symptoms less then a week and not months and has no twitching or spasms doubt neoplasm at this time, do not feel any imaging or labs other then a tick panel indicated. Will start him on prednisone and given he is normally healthy without renal dysfunction also start valtrex. Advised to use eye protection and f/u with his pcp, return precautions also given Differential Diagnosis Differential Diagnosis: bells, tick illness HPI General Mode of arrival: ambulatory . Date/Time Provider Initiated Documentation: 07/11/23 17:12 . Limitations to Documentation: no limitations . Information obtained by: patient . History of Present Illness 42 year old M presents to the emergency department with the chief complaint of right sided facial numbness, described as moderate, Patient started experiencing this week(s) (1) and it has been other (worsening). No relieving factors improve symptom(s), No exacerbating factors reported . Patient did receive the following treatments prior to arrival, none Related Data Home Medications Medication Instructions Recorded Confirmed prednisone 20 mg tablet 60 mg PO DAILY 7 days #21 tabs 07/11/23 valacyclovir 1 gram tablet 1,000 mg PO TID #21 tabs 07/11/23 Previous Rx's Medication Instructions Recorded prednisone 20 mg tablet 60 mg PO DAILY 7 days #21 tabs 07/11/23 valacyclovir 1 gram tablet 1,000 mg PO TID #21 tabs 07/11/23 Allergies Allergy/AdvReac Type Severity Reaction Status Date / Time No Known Allergies Allergy Unverified 07/11/23 17:16 General Stated Complaint: FacialProb ZEE: 3 Review of Systems All systems reviewed & are unremarkable except as noted in HPI and below Constitutional Constitutional: Denies chills, Denies fever(s) and Denies weakness Eyes Eyes: Denies loss of vision ENT Ears, Nose, Mouth, and Throat: Denies change in voice Cardiovascular Cardiovascular: Denies chest pain and Denies dyspnea Respiratory Respiratory: Denies cough and Denies dyspnea Gastrointestinal Gastrointestinal: Denies abdominal pain, Denies nausea and Denies vomiting Integumentary/Breasts Skin/Breast: Denies rash Neurologic Neurologic: Denies loss of vision and Denies weakness PFSH All Active Problems (Updated 07/11/23 @ 17:32 by Sameer Singh MD) Dog bite of right forearm (Acute) Visit for suture removal (Acute) Landa's palsy (Acute) Social History Smoking/Tobacco Use Status: Current every day Tobacco Type: cigarettes Smoking risk assessment performed?: Yes Alcohol Intake: current Alcohol Intake frequency: holidays/special occasions only Alcohol type: beer Drug use: Never Substance use type: does not use Housing: house Do you feel safe at home: Yes Do you feel safe in your relationship?: Yes Exam Const General: no acute distress Orientation: alert HENMT Head: normal to inspection Ears: external ears normal, TM's normal bilaterally and EAC's normal General nose exam: external nose normal Mouth: moist mucous membranes Eyes General: appearance normal, both eyes and all related structures Neck Neck: normal visual inspection Resp Effort & Inspection: normal respiratory effort and able to speak in complete sentences Cardio Rate: regular rate Skin General skin exam: no rashes or lesions noted Neuro General: patient alert and patient oriented x3 Extrem General: normal to inspection Psych Mental Status: mental status grossly normal Course Vital Signs Vital signs: Vital Signs Temperature 37.1 C 07/11/23 17:13 Pulse 78 07/11/23 17:13 Respiratory Rate 14 07/11/23 17:13 Blood Pressure 157/96 H 07/11/23 17:13 Pulse Oximetry 98 07/11/23 17:13 Temperature 37.1 C 07/11/23 17:13 Temperature Source Skin 07/11/23 17:13 Pulse 78 07/11/23 17:13 Respiratory Rate 14 07/11/23 17:13 Respiratory Effort Normal, Non-Labored 07/11/23 17:18 Blood Pressure 157/96 H 07/11/23 17:13 Blood Pressure Position Sitting 07/11/23 17:13 Pulse Oximetry 98 07/11/23 17:13 Oxygen Delivery Method Room Air 07/11/23 17:13 Oxygen Flow Rate 0 07/11/23 17:13 Pain Level 0 07/11/23 17:13 PAWSS Have you Been Recently Intoxicated or Drunk Within the Last 30 days?: No Have you Ever Experienced Previous Episodes of Alcohol Withdrawal?: No Have you ever Experienced Withdrawal Seizures?: No Have you ever Experienced Delirium Tremens(DT)s?: No Have you ever undergone Alcohol Rehabilitation Treatment (i.e, inpt ot outpatient treatment programs)?: No Have you ever Experienced Blackouts?: No Have you ever Combined Alcohol with other Downers within the last 90 days?: No Have you ever Combined Alcohol with any other Substance of Abuse during the last 90 days?: No Result: 0
[2023-07-11 17:39] VITALS: BP 131/91; PULSE 78; RESP 16; O2SAT 98
[2023-07-15 09:58] LABS: Lyme Ab w Rflx to Lyme Confirm Negative (Negative)
[2023-07-15 13:39] LABS: Anaplasma phagocytophilum Negative (Negative); B. miyamotoi PCR Negative (Negative); Babesia divergens/MO-1 Negative (Negative); Babesia duncani Negative (Negative); Babesia microti Negative (Negative); Ehrlichia chaffeensis Negative (Negative); Ehrlichia ewingii/canis Negative (Negative); Ehrlichia muris eauclairensis Negative (Negative)
== END 2023-07-11 17:43 | disposition home or self-care (01) ==
PROVIDERS: Emergency Provider Emergency Medicine; PCP Nurse Practitioner Family
DX: G51.0 Bell's palsy
CPT/HCPCS: 87798; 99282; 86618; 99284

== ENCOUNTER 2023-12-01 20:52 | Emergency (ER) | payer MEDICAID, SELFPAY ==
[2023-12-01 20:55] VITALS: BP 140/91; PULSE 85; RESP 18; TEMP 36.9; O2SAT 97
--- NOTE | 2023-12-01 21:49 | ED.GENADUL_ITS ---
HPI General Stated Complaint: Orthopedic Mode of arrival: ambulatory. ZEE: 3 Date/Time Provider Initiated Documentation: 12/01/23 21:18. Limitations to Documentation: no limitations. Information obtained by: patient and RN notes reviewed. History of Present Illness Left leg pain moderate and similar to prior episodes day(s) (4) constant Immoblization worsens symptoms rash NSAID Related Data Home Medications Medication Instructions Recorded Confirmed valacyclovir 1 gram tablet 1,000 mg PO TID #21 tabs 07/11/23 12/01/23 methocarbamol 750 mg tablet 750 mg PO TID PRN spasms #10 tabs 12/01/23 Previous Rx's Medication Instructions Recorded valacyclovir 1 gram tablet 1,000 mg PO TID #21 tabs 07/11/23 methocarbamol 750 mg tablet 750 mg PO TID PRN spasms #10 tabs 12/01/23 Allergies Allergy/AdvReac Type Severity Reaction Status Date / Time No Known Allergies Allergy Unverified 12/01/23 21:01 Review of Systems Constitutional Constitutional: Denies chills and Denies fever(s) Cardiovascular Cardiovascular: Denies chest pain and Denies dyspnea on exertion Respiratory Respiratory: Denies cough and Denies dyspnea on exertion Gastrointestinal Gastrointestinal: Denies abdominal pain, Denies change in bowel habits, Denies diarrhea, Denies nausea and Denies vomiting Genitourinary Genitourinary: Denies difficulty urinating and Denies urinary incontinence Musculoskeletal Musculoskeletal: Reports as per HPI and Reports back pain Integumentary/Breasts Skin/Breast: Reports rash Neurologic Neurologic: Denies sensory deficit PFSH All Active Problems Lichen planus (Acute) Radiculopathy of leg (Acute) Visit for suture removal (Acute) Dog bite of right forearm (Acute) Social History Smoking/Tobacco Use Status: Current every day Tobacco Type: cigarettes Smoking risk assessment performed?: Yes Alcohol Intake: current Alcohol Intake frequency: holidays/special occasions only Alcohol type: beer Drug use: Never Substance use type: does not use Housing: house Do you feel safe at home: Yes Do you feel safe in your relationship?: Yes Exam Const General: cooperative and no acute distress Orientation: alert, awake and oriented x3 Cardio Rate: regular rate Rhythm: regular rhythm Pulses: normal peripheral pulses Back/Spine/Pelvis Thoracic/Lumbar Spine: No paraspinal tenderness, thoraco-lumbar ROM limited, No lumbar spinal tenderness and straight leg raise positive Pelvis: no pain with anterior-posterior compression and buttock tenderness on the left Skin Rashes: rashes noted papules left foot Neuro General: patient alert, patient awake and patient oriented x3 Course Vital Signs Vital signs: Vital Signs Temperature 36.9 C 12/01/23 20:55 Pulse 85 12/01/23 20:55 Respiratory Rate 18 12/01/23 20:55 Blood Pressure 140/91 H 12/01/23 20:55 Pulse Oximetry 97 12/01/23 20:55 Temperature 36.9 C 12/01/23 20:55 Temperature Source Temporal Artery Scan 12/01/23 20:55 Pulse 85 12/01/23 20:55 Respiratory Rate 18 12/01/23 20:55 Blood Pressure 140/91 H 12/01/23 20:55 Blood Pressure Position Sitting 12/01/23 20:55 Pulse Oximetry 97 12/01/23 20:55 Oxygen Delivery Method Room Air 12/01/23 20:55 Oxygen Flow Rate 0 12/01/23 20:55 Pain Level 3 12/01/23 20:55 Medical Decision Making Patient presenting to the emergency department for chief complaint of left leg pain. Patient reports a couple weeks ago that he had been cutting and stacking firewood and may have exacerbated old back injury which she had surgery on. He states he has been doing well but now having fairly persistent pain radiating down his left leg states pain mostly starts in his buttock and radiates down. Beyond a noted rash to his foot and leg that has been there for a while patient denies any other symptoms. Only other significant contributing past medical history was lumbar surgery approximately 12 years ago. Physical exam shows no lumbar tenderness, left buttock tenderness and rash that appears consistent with lichen planus. Exam otherwise noncontributory. With discussion of patient he did state that previously narcotics and other pain meds did not seem to help pain much but steroid did seem to relieve symptoms previously. He does state occasional sensation of muscular spasm with symptoms so we will place patient on Robaxin and will give patient Depo-Medrol to see if this helps with his symptoms. Otherwise patient encouraged to perform light duty activities and to avoid any heavy lifting bending or twisting motions and to follow-up with primary care provider if not improving. LOW risk for ABDOMINAL AORTIC ANEURYSM, CAUDA EQUINA SYNDROME, EPIDURAL MASS LESION, SPINAL STENOSIS, OR HERNIATED DISK CAUSING SEVERE STENOSIS, thus I consider the discharge disposition reasonable. We have discussed the diagnosis and risks, and we agree with discharging home to follow-up with their primary doctor. We also discussed returning to the Emergency Department immediately if new or worsening symptoms occur. We have discussed the symptoms which are most concerning (e.g., saddle anesthesia, urinary or bowel incontinence or retention, changing or worsening pain) that necessitate immediate return. After discussion of diagnosis and plan of care patient has no further needs, questions, or concerns and states clear understanding to return to the emergency department for any worsening symptoms. This documentation was generated using Virtual Brid[employer] system, please disregard any oddities of phrase or misspellings. Quality:SDOH Health Related Social Needs: No Data to Display Discharge Plan Disposition Patient Disposition: Home Discharge Details Clinical Impression: Radiculopathy of leg, Lichen planus Primary Care Provider: Marely,Local ED Provider: Mohan Beard Home Meds and New Rx's Prescriptions: New methocarbamol 750 mg tablet 750 mg PO TID PRN (Reason: spasms) Qty: 10 0RF No Action valacyclovir 1 gram tablet 1,000 mg PO TID Qty: 21 0RF Discharge Instructions Instructions: Acute Rash (ED) Additional Instructions: At this time there are no emergent findings consistent with your back pain. You have been given a steroid shot and muscle relaxants to help with the discomfort. You may continue to take [id number] medications just do not exceed 3000 to 4000 mg of acetaminophen in a 24-hour period Please follow-up with your primary care provider for reassessment and return to the emergency department immediately for any new or significant worsening of symptoms Referrals: Primary Care Provider [Outside] - 5 days
[2023-12-01] MEDS: methylPREDNISolone ACETATE 80 MG/ML VIAL IM (22:12)
[2023-12-01] MEDS: Methocarbamol 750 MG TAB PO (22:14)
== END 2023-12-01 22:14 | disposition home or self-care (01) ==
PROVIDERS: Emergency Provider Nurse Practitioner Family
DX: M54.16 Radiculopathy, lumbar region (principal); L43.9 Lichen planus, unspecified
CPT/HCPCS: 99283; J1040

== ENCOUNTER 2025-01-28 18:25 | Emergency (ER) | payer SELFPAY ==
[2025-01-28 18:38] VITALS: BP 137/102; PULSE 84; RESP 20; O2SAT 96
[2025-01-28 18:42] VITALS: TEMP 36.8
--- NOTE | 2025-01-28 18:45 | DI.RAD_ITS ---
Exam(s) XR TIB/FIB RT EXAM: XR TIB/FIB RT CLINICAL HISTORY: Pain swelling. TECHNIQUE: 2D digital imaging was performed of the right tibia and fibula. Four images were obtained . AP and lateral views were obtained. COMPARISON: No exams were available for comparison FINDINGS: BONES: No acute fracture is present. No bony destructive lesion is seen. Visualized portion of knee a nd ankle joints are unremarkable. SOFT TISSUE: Normal. No radiopaque foreign body. IMPRESSION: Unremarkable radiographs of the right tibia and fibula. DATA REPOSITORY: RADIATION DOSE DELIVERED:
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
[2025-01-28] MEDS: Acetaminophen 500 MG TAB 1000 MG PO (19:07)
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
[2025-01-28] MEDS: Cyclobenzaprine 10 MG TAB, 3 TABS/BTL PO (20:17)
[2025-01-28 20:20] VITALS: BP 137/93; PULSE 68; RESP 18; O2SAT 98
--- NOTE | 2025-01-30 08:24 | NUR.NOTE ---
Access chart to get the discharge diagnosis for [facility] billing requisition. Nursing Note:
== END 2025-01-28 20:20 | disposition home or self-care (01) ==
PROVIDERS: Emergency Provider Registered Nurse Emergency
DX: M25.462 Effusion, left knee (principal); V86.56XA Driver of dirt bike or motor/cross bike injured in nontraffic accident, initial encounter; S80.11XA Contusion of right lower leg, initial encounter; S60.511A Abrasion of right hand, initial encounter; S60.512A Abrasion of left hand, initial encounter; F17.210 Nicotine dependence, cigarettes, uncomplicated
CPT/HCPCS: 73562; 99284; 73590; 99283

== ENCOUNTER 2025-02-09 14:43 | Emergency (ER) | payer SELFPAY ==
[2025-02-09 14:45] VITALS: BP 146/91; PULSE 80; RESP 18; TEMP 36.6; O2SAT 95
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
[2025-02-09 15:25] LABS: Abs Immature Grans 0.03 10^3/uL (0.0-0.06); Absolute Basophil Count 0.04 10^3/uL (0.0-0.2); Absolute Eosinophil Count 0.25 10^3/uL (0.0-0.7); Absolute Lymphocyte Count 2.75 10^3/uL (1.2-3.4); Absolute Monocyte Count 0.71 10^3/uL (0.1-0.8); Absolute Neutrophil Count 4.85 10^3/uL (1.2-6.7); Basophils % 0.5 %; Eosinophils % 2.9 %; HCT 43.8 % (40.0-50.0); HGB 14.7 g/dL (13.5-17.5); Immature Grans % 0.3 %; Lymphocytes % 31.9 %; MCH 30.9 pg (27.0-33.0); MCHC 33.6 % (32.0-36.0); MCV 92 fL (80-95); MPV 8.2 fL (8.0-11.0); Monocytes % 8.2 %; Neutrophils % 56.2 %; Platelet Count 381 10^3/uL (130-400); RBC 4.75 10^6/uL (4.36-5.78); RDW 12.8 % (11.8-14.1); RDW-SD 43.6 fL; WBC 8.63 10^3/uL (4.4-10.8)
[2025-02-09 15:38] LABS: Anion Gap 5.5 mmol/L (3-11); BUN 12 mg/dL (7-18); CO2 29.5 mmol/L (21.0-32.0); CREATININE 0.9 mg/dL (0.70-1.30); Calcium 9.3 mg/dL (8.5-10.1); Chloride 107 mmol/L (98-107); Estimated GFR 108.68 (mL/min/1.73m2); Glucose 82 mg/dL (74-106); Potassium 4.4 mmol/L (3.5-5.1); Sodium 142 mmol/L (136-145)
[2025-02-09] MEDS: Omnipaque 350 MG/ML 100 ML BTL IJ (15:47)
[2025-02-09] MEDS: Normal Saline - Diluent 50 ML VIAL IJ (15:48)
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
== END 2025-02-09 17:17 | disposition home or self-care (01) ==
PROVIDERS: Emergency Provider Emergency Medicine
DX: S80.12XA Contusion of left lower leg, initial encounter (principal); V29.99XA Rider (driver) (passenger) of other motorcycle injured in unspecified traffic accident, initial encounter; F17.210 Nicotine dependence, cigarettes, uncomplicated
CPT/HCPCS: 36415; 80048; 99285; 73701; 85025; J3490

== ENCOUNTER 2025-08-07 14:06 | Emergency (ER) | payer SELFPAY ==
[2025-08-07 14:08] VITALS: BP 126/82; PULSE 82; RESP 16; TEMP 36.4; O2SAT 94
--- NOTE | 2025-08-07 14:29 | ED.GENADUL_ITS ---
Discharge Plan Disposition Patient Disposition: Home Condition: Stable Discharge Details Clinical Impression: Kidney stone on left side, Acute UTI Primary Care Provider: Unknown,Unknown ED Provider: Shyla Silva Home Meds and New Rx's Prescriptions: New cephalexin 500 mg tablet 500 mg PO BID 10 Days Qty: 20 0RF Rx Instructions: Please take 1 tablet by mouth twice daily for the next 10 days Discharge Instructions Instructions: Kidney Stone, Adult ED, Urinary Tract Infection, Adult ED Additional Instructions: It does appear that you have a urinary tract infection. Please take the antibiotic twice daily with yogurt or probiotic. You also have a nonobstructing kidney stone noted on the left side. Please follow-up with urology within the next 3 to 5 days please call on Saturday morning for an appointment. Please take Tylenol or Ibuprofen with food every 4-6 hours as needed for pain and swelling. Please increase oral fluids. Follow up with urology/primary care provider in 3-5 days. Return to ED sooner if any worsening fever, worsening bleeding, inability to urinate, vomiting, fever over 100.8 or concerns. Referrals: Yonatan Kuo MD [ [facility] STAFF PHYSICIAN, Urology] - 3 days Silvina Maurice DNP [NURSE PRACTITIONER, Urology] - 3 days Referral Note: ER follow up call for appt HPI General Mode of arrival: ambulatory . Date/Time Provider Initiated Documentation: 08/07/25 14:18 . Limitations to Documentation: no limitations . Information obtained by: patient, RN notes reviewed and old records reviewed . HPI Narrative: 44-year-old male presents to the ER with a chief complaint of dysuria, hematuria, hesitancy associated with some left flank pain which began last night. He reports hematuria with blood clots this morning. He also states that this could be due to his chronic back pain. Denies any recent injuries or falls. Denies any fever chills nausea or vomiting or diarrhea. He is alert and oriented x 4, vital signs are stable upon arrival. He denies any drugs or alcohol at does endorse smoking. Related Data Home Medications ?Medication ?Instructions ?Recorded ?Confirmed cephalexin 500 mg tablet 500 mg PO BID UTI 10 days #2 0 tabs 08/07/25 Previous Rx's ?Medication ?Instructions ?Recorded cephalexin 500 mg tablet 500 mg PO BID UTI 10 days #2 0 tabs 08/07/25 Allergies Allergy/AdvReac Type Severity Reaction Status Date / Time No Known Allergies Allergy Unverified 08/07/25 14:12 General Stated Complaint: Urinary ZEE: 3 Review of Systems Constitutional Constitutional: Denies chills and Denies fever(s) Gastrointestinal Gastrointestinal: Denies diarrhea, Denies nausea and Denies vomiting Genitourinary Genitourinary: Reports as per HPI, Reports hematuria, Reports dysuria and Reports flank pain Exam Narrative Exam Narrative: Constitutional: Alert and oriented x3. Appears stated age. Normal body habitus. Head: Normocephalic, no trauma. Eyes: Pupils PERRL, Red reflex noted, EOM's intact. Eyelids symmetrical without lesions, discharge, or swelling. ENT: Bilateral TM's WNL, External ear normal to inspection, no mastoid TTP, swelling, or erythema, Nasal turbinates WNL, no nasal discharge. Normal dentition, Posterior pharynx WNL, no exudate. Chest: RRR, Normal S1, S2, distal pulses intact. Resp: Lungs clear to auscultation bilaterally, no wheezes, rales, or rhonchi. Abdomen: Soft, non-distended, Normoactive bowel sounds all 4 quads. Musculoskeletal: Normal gait, Moves all 4 extremities without difficulty. Skin: No suspicious rashes or lesions. Capillary refill less than 2 sec. Neurologic: Cranial nerves II-XII intact. Alert and oriented x 3. Motor: No def icits noted. Sensory: Intact bilaterally all 4 extremities. Hematologic/Lymphatic: No ecchymosis, no lymphadenopathy. Course Vital Signs Vital signs: Vital Signs Temperature 36.4 C 08/07/25 14:08 Pulse 82 08/07/25 14:08 Respiratory Rate 16 08/07/25 14:08 Blood Pressure 126/82 08/07/25 14:08 Pulse Oximetry 94 08/07/25 14:08 Temperature 36.4 C 08/07/25 14:08 Temperature Source Tympanic 08/07/25 14:08 Pulse 82 08/07/25 14:08 Respiratory Rate 16 08/07/25 14:08 Blood Pressure 126/82 08/07/25 14:08 Blood Pressure Position Sitting 08/07/25 14:08 Pulse Oximetry 94 08/07/25 14:08 Oxygen Delivery Method Room Air 08/07/25 14:08 Oxygen Flow Rate 0 08/07/25 14:08 Pain Level 0 08/07/25 14:08 Medical Decision Making 44-year-old male presents to the ER with a chief complaint of dysuria, hematuria, hesitancy associated with some left flank pain which began last night. He reports hematuria with blood clots this morning. He also states that this could be due to his chronic back pain. Denies any recent injuries or falls. Denies any fever chills nausea or vomiting or diarrhea. He is alert and oriented x 4, vital signs are stable upon arrival. He denies any drugs or alcohol at does endorse smoking. CBC, CMP, urinalysis. CT abdomen pelvis without contrast, Toradol 15 mg IV, liter normal saline and Zofran 4 mg ODT CBC shows 11.94 WBC, neutrophil 7.82, urinalysis shows large blood positive nitrites greater than 50 RBCs, WBCs 20-50 CT shows nonobstructing left sided kidney stone and possible right renal calculi. No obstruction, no ureteral stones. No hydronephrosis or hydroureter. Discussed strict follow-up with urology within the next 3 days, will give Rocephin here in the department, cephalexin 500 mg twice daily for the next 10 days prescribed. Patient verbalized understanding. Remained hemodynamically stable, afebrile throughout the remainder of his stay. This text was generated using [facility] dictation system, please disregard any oddities of phrase or misspellings. Medical Records Medical records reviewed: Yes I reviewed the patient's medical records. Imaging Data Radiologic Study: Imaging: CT Scan Radiologist's impression: TECHNIQUE: Imaging protocol: Computed tomography of the abdomen and pelvis without contrast. COMPARISON: CT LOWER EXTREMITY LT W 02/09/2025 3:45 PM FINDINGS: Liver: Normal. No mass. Gallbladder and biliary ducts: Gallbladder contracted. Pancreas: Normal. No ductal dilation. Spleen: Normal. No splenomegaly. Adrenal glands: Normal. No mass. Kidneys and ureters: Nonobstructing left renal lower pole calculus. There may be 1 or 2 1 mm nonobstructing right renal calculi. No hydronephrosis or hydroureter. No obstructing calculus seen. Stomach and bowel: Unremarkable. No obstruction. No mucosal thickening. Appendix: No evidence of appendicitis. Intraperitoneal space: Unremarkable. No free air. No significant fluid collection. Vasculature: Moderate atherosclerotic change noted in the vasculature. Lymph nodes: Unremarkable. No enlarged lymph nodes. Urinary bladder: Bladder is not well distended. Reproductive: Unremarkable as visualized. Bones/joints: Unremarkable. No acute fracture. Soft tissues: Unremarkable. IMPRESSION: Nonobstructing left and probably right renal calculi. No acute abnormality evident. Thank you for allowing us to participate in the care of your patient. Dictated and Authenticated by: Bozena Guido MD Lab Data Lab results reviewed: Yes I reviewed the patient's lab results. Labs: 08/07/25 14:22 Urine - Reflex from Ua Urine Culture - Pending Laboratory Tests Range/Units 08/07/25 08/07/25 14:22 14:30 WBC (4.4-10.8) 10^3/uL 11.94 H RBC (4.36-5.78) 10^6/uL 5.24 Hgb (13.5-17.5) g/dL 15.8 Hct (40.0-50.0) % 47.3 MCV (80-95) fL 90 MCH (27.0-33.0) pg 30.2 MCHC (32.0-36.0) % 33.4 RDW (11.8-14.1) % 13.4 Plt Count (130-400) 10^3/uL 351 MPV (8.0-11.0) fL 8.5 Immature Gran % % 0.4 Neutrophils % % 65.5 Lymphocytes % % 25.6 Monocytes % % 6.9 Eosinophils % % 1.3 Basophils % % 0.3 Nucleated RBC % (0.0-0.3) % 0.0 Absolute Neutrophils (1.2-6.7) 10^3/uL 7.82 H Absolute Lymphocytes (1.2-3.4) 10^3/uL 3.06 Absolute Monocytes (0.1-0.8) 10^3/uL 0.82 H Absolute Eosinophils (0.0-0.7) 10^3/uL 0.16 Absolute Basophils (0.0-0.2) 10^3/uL 0.04 Sodium (136-145) mmol/L 137 Potassium (3.5-5.1) mmol/L 4.0 Chloride (98-107) mmol/L 101 Carbon Dioxide (21.0-32.0) mmol/L 29.1 Anion Gap (3-11) mmol/L 6.9 BUN (7-18) mg/dL 13 Creatinine (0.70-1.30) mg/dL 1.0 Est GFR (CKD-EPI 2020) (mL/min/1.73m2) 95.77 Glucose (74-106) mg/dL 90 Calcium (8.5-10.1) mg/dL 9.4 Total Bilirubin (0.2-1.0) mg/dL 0.6 AST (15-37) U/L 19 ALT (16-63) U/L 39 Alkaline Phosphatase (46-116) U/L 83 Total Protein (6.4-8.2) g/dL 8.0 Albumin (3.4-5.0) g/dL 4.2 Urine Color (Yellow) Yellow Urine Clarity (Clear) Turbid Urine pH (5-8) 5.5 Ur Specific [place] (1.005-1.025) >= 1.030 H Urine Protein (Neg-Trace) mg/dL 100 H Urine Ketones (Negative) mg/dL Negative Urine Blood (Negative) Large H Urine Nitrite (Negative) Positive H Urine Bilirubin (Negative) Negative Urine Urobilinogen (Up to 0.2) mg/dL 0.2 Ur Leukocyte Esterase (Negative) Small H Urine RBC (0-2) HPF >50 H Urine WBC (0-5) HPF 20-50 H Ur Epithelial Cells (Negative) HPF Negative Urine Crystals (Negative) HPF Negative Urine Bacteria (Negative) HPF Many Urine Casts (Negative) LPF Negative Urine Mucus (Negative) Negative Urine Other (Negative) Few Yeast Ur Culture Indicated? Yes Urine Glucose (Negative) mg/dL Negative PFSH All Active Problems (Updated 08/07/25 @ 16:03 by Shyla Silva NP) Acute UTI (Acute) Kidney stone on left side (Acute) Visit for suture removal (Acute) Dog bite of right forearm (Acute) Social History Smoking/Tobacco Use Status: Current every day Tobacco Type: cigarettes Smoking risk assessment performed?: Yes Alcohol Intake: current Alcohol Intake frequency: holidays/special occasions only Alcohol type: beer Drug use: Never Substance use type: does not use Housing: house Do you feel safe at home: Yes Do you feel safe in your relationship?: Yes
[2025-08-07 14:35] VITALS: BP 126/82; PULSE 82; RESP 16; TEMP 36.4; O2SAT 94
[2025-08-07] MEDS: Ketorolac 15 MG/ML VIAL IVP (14:47)
[2025-08-07] MEDS: Ondansetron 4 MG/2 ML VIAL IVP (14:47)
[2025-08-07] MEDS: Normal Saline 1,000 ML 1000 ML IV (14:47)
[2025-08-07 14:49] LABS: Glucose Negative (Negative)
[2025-08-07 15:04] LABS: Abs Immature Grans 0.05 10^3/uL (0.0-0.06); HCT 47.3 % (40.0-50.0); HGB 15.8 g/dL (13.5-17.5); Immature Grans % 0.4 %; MCH 30.2 pg (27.0-33.0); MCHC 33.4 % (32.0-36.0); MCV 90 fL (80-95); MPV 8.5 fL (8.0-11.0); Platelet Count 351 10^3/uL (130-400); RBC 5.24 10^6/uL (4.36-5.78); RDW 13.4 % (11.8-14.1); RDW-SD 44.2 fL; WBC 11.94 10^3/uL (4.4-10.8)
--- NOTE | 2025-08-07 15:11 | DI.CT_ITS ---
Exam(s) CT RENAL COLIC WO EXAM: CT RENAL COLIC WO CLINICAL HISTORY: Flank Pain, Hematuria. TECHNIQUE: Imaging Protocol: Axial computed tomography images with coronal and sagittal reformatted images were created and reviewed. COMPARISON: CT ABD/PELVIS WO W CONTRAST from 01/12/2011 FINDINGS: ABDOMEN: Lung Bases: Normal where visualized. Liver: Normal density. No measurable mass. Gallbladder and biliary tract: No radiodense calculus or biliary ductal dilation. Pancreas: Normal density, no abnormal calcifications or inflammatory process. Spleen: Normal. Kidneys: Normal size, contour and axis.There is a nonobstructing 2 mm stone in the lower pole of the left kidney. There is no evidence of ureterolithiasis or hydronephrosis. No masses seen. Incidental note is made of a retroaortic left renal vein. Adrenal glands: No mass is seen. Lymph nodes: Within normal limits. Abdominal Aorta: Abdominal portion non-dilated. Atherosclerotic calcification is noted in the abdominal aorta. PELVIS: Bladder:Symmetric distention, no gross wall thickening. Bowel: No obstruction or bowel wall thickening. Appendix is unremarkable. Peritoneal cavity: No ascites, collection or mesenteric inflammatory response. No free air. Reproductive organs: Unremarkable as visualized. Bones: Within normal limits. Soft Tissues: Within normal limits. IMPRESSION: 1. Left nephrolithiasis. 2. No obstructive uropathy. 3. No acute abdominal or pelvic process. 4. The preliminary [facility] report was reviewed. RADIATION DOSE DELIVERED: 817.01mGy.cm Total DLP DATA REPOSITORY: All CT scans at this facility are submitted to the National Radiology Data Registry (NRDR) Dose Index Registry (DIR) with the [employer] (A[employer]). RADIATION OPTIMIZATION: All CT scans at this facility use at least one of these dose optimization techniques: automated exposure control; mA and/or kV adjustment per patient size (includes targeted exams where dose is matched to clinical indication); or iterative reconstruction.
[2025-08-07 15:22] LABS: ALT 39 U/L (16-63); AST 19 U/L (15-37); Albumin 4.2 g/dL (3.4-5.0); Alkaline Phosphatase 83 U/L (46-116); Anion Gap 6.9 mmol/L (3-11); BUN 13 mg/dL (7-18); Bilirubin, Total 0.6 mg/dL (0.2-1.0); CO2 29.1 mmol/L (21.0-32.0); Calcium 9.4 mg/dL (8.5-10.1); Chloride 101 mmol/L (98-107); Estimated GFR 95.77 (mL/min/1.73m2); Glucose 90 mg/dL (74-106); Potassium 4.0 mmol/L (3.5-5.1); Sodium 137 mmol/L (136-145); Total Protein 8.0 g/dL (6.4-8.2)
[2025-08-07 15:27] LABS: RBC >50 HPF (0-2); WBC 20-50 HPF (0-5)
[2025-08-07 15:28] LABS: C & S Indicated? Yes
[2025-08-07] MEDS: cefTRIAXone 1 GM/50 ML BAG IVPB (15:31)
--- NOTE | 2025-08-07 15:36 | DI.[facility]_ITS ---
PROCEDURE INFORMATION: Exam: CT Abdomen And Pelvis Without Contrast Exam date and time: 08/07/2025 3:03 PM Age: 44 years old Clinical indication: Other: Flank pain, hematuria TECHNIQUE: Imaging protocol: Computed tomography of the abdomen and pelvis without contrast. COMPARISON: CT LOWER EXTREMITY LT W 02/09/2025 3:45 PM FINDINGS: Liver: Normal. No mass. Gallbladder and biliary ducts: Gallbladder contracted. Pancreas: Normal. No ductal dilation. Spleen: Normal. No splenomegaly. Adrenal glands: Normal. No mass. Kidneys and ureters: Nonobstructing left renal lower pole calculus. There may be 1 or 2 1 mm nonobstructing right renal calculi. No hydronephrosis or hydroureter. No obstructing calculus seen. Stomach and bowel: Unremarkable. No obstruction. No mucosal thickening. Appendix: No evidence of appendicitis. Intraperitoneal space: Unremarkable. No free air. No significant fluid collection. Vasculature: Moderate atherosclerotic change noted in the vasculature. Lymph nodes: Unremarkable. No enlarged lymph nodes. Urinary bladder: Bladder is not well distended. Reproductive: Unremarkable as visualized. Bones/joints: Unremarkable. No acute fracture. Soft tissues: Unremarkable. IMPRESSION: Nonobstructing left and probably right renal calculi. No acute abnormality evident. Dictated and Authenticated by: Bozena Guido MD. Orderin Shira Mansfield MD
[2025-08-07] MEDS: Cephalexin 500 MG CAP, 2 CAPS/BTL PO (16:24)
--- NOTE | 2025-08-09 08:24 | NUR.NOTE ---
Accessed Pt chart to document the antibiotic prescribed for the PT on the Specimen Report and gave it to the Providers
== END 2025-08-07 16:24 | disposition home or self-care (01) ==
PROVIDERS: Emergency Provider Registered Nurse Emergency
DX: N20.0 Calculus of kidney (principal); N39.0 Urinary tract infection, site not specified; F17.210 Nicotine dependence, cigarettes, uncomplicated
CPT/HCPCS: 80053; 87077; 96374; 96375; 99284; 74176; 81003; 81015; 85025; 87086; 87186; J0696; J1885; J2405